=== PATIENT | male | born 1955 | race Caucasian/White ===

== ENCOUNTER 2020-10-05 09:10 | Day surgery (SDC) | payer MEDICARE, BC ==
[~2020-10-05] VITALS: Ht 180.3 cm; Wt 78.7 kg
[~2020-10-05 09:10] MED LIST: HYDACE5 PO; LANS30EC PO
[2020-10-05] MEDS ORDERED: LISI5 (09:37)
--- NOTE | 2020-10-05 11:50 | NUR ---
10/05/20 1150 Vivian Rice PT. VERBALIZES FEELING "A LITTLE DISCOMFORT" IN HIS ABD. PT. INSTRUCTED THAT EVENTUALLY THE AIR WOULD ABSORB IN HIS COLON OR JUST PASS IT OUT IF ABLE.
== END 2020-10-05 11:45 | disposition home or self-care (01) ==
LOC: ORSCSDS 09:10
PROVIDERS: Internal Medicine Gastroenterology
PROC: 0DBH8ZX Excision of Cecum, Via Natural or Artificial Opening Endoscopic, Diagnostic (ICD-10-PCS; principal; 2020-10-05 10:30)
PROC: 0DBM8ZX Excision of Descending Colon, Via Natural or Artificial Opening Endoscopic, Diagnostic (ICD-10-PCS; principal; 2020-10-05 10:30)
PROC: 0DBN8ZX Excision of Sigmoid Colon, Via Natural or Artificial Opening Endoscopic, Diagnostic (ICD-10-PCS; principal; 2020-10-05 10:30)
DX: Z12.11 Encounter for screening for malignant neoplasm of colon (principal); Z86.010 Personal history of colon polyps; D12.0 Benign neoplasm of cecum; D12.4 Benign neoplasm of descending colon; K63.5 Polyp of colon; K21.9 Gastro-esophageal reflux disease without esophagitis; K57.30 Diverticulosis of large intestine without perforation or abscess without bleeding; Z79.899 Other long term (current) drug therapy
CPT/HCPCS: 88305; J2704; J7120